=== PATIENT | female | born 1975 | race Caucasian/White ===

== ENCOUNTER → 2023-03-30 10:23 | Emergency (ER) | payer MEDICAID ==
[~2023-03-30] VITALS: Ht 170.2 cm; Wt 91.0 kg
[~2023-03-30 10:23] MED LIST: ALPR1TAB7; ARIP1TAB5 PO; CLIN300C8 PO; HYDR-2598; LORA-483 PO; LORazepam 0.5 MG TAB PO ONE; SERT50TA19 PO
[2023-03-30 10:57] LABS: Basophils # (auto) 0.1 10 ^3/uL (0-0.2); Basophils % (auto) 0.8 % (0.0-2.0); Eosinophils # (auto) 0 10 ^3/uL (0-0.8); Eosinophils % (auto) 0.1 % (0.0-7.0); Hematocrit 40.3 % (36.0-46.0); Hemoglobin 13.7 g/dL (12.2-16.2); Lymphocytes # (auto) 1.5 10 ^3/uL (0.4-5.4); Lymphocytes % (auto) 21.2 % (10.0-50.0); Mean Corpuscular Hemoglobin 29.7 pg (28.0-32.0); Mean Corpuscular Hgb Conc. 33.9 g/dL (32.0-36.0); Mean Corpuscular Volume 87.6 fL (80.0-100.0); Monocytes # (auto) 0.3 10 ^3/uL (0-1.3); Monocytes % (auto) 4.2 % (0.0-12.0); Neutrophils # (auto) 5.2 10 ^3/uL (1.6-8.6); Neutrophils % (auto) 73.7 % (37.0-80.0); Nucleated Red Blood Cells % 0.1 %; Red Blood Cells 4.61 10^6/uL (4.0-5.20); Red Cell Distribution Width 13.5 % (11.8-14.3)
[2023-03-30 11:20] LABS: Albumin 4.1 g/dL (3.4-5.0); Calcium 8.9 mg/dL (8.5-10.1); Potassium 3.6 mmol/L (3.5-5.1)
[2023-03-30 11:24] LABS: BUN/Creatinine Ratio 17.4 (10.0-20.0); Bilirubin, Total 0.6 mg/dL (0.2-1.0); Total Protein 7.5 g/dL (6.4-8.2)
[2023-03-30 13:13] VITALS: BP 112/64
== END | disposition home or self-care (01) ==
LOC: EDUNIT# 10:17 → ER 10:23 → EDBD 10:23 → ER 13:51
DX: I10 Essential (primary) hypertension (principal); R07.89 Other chest pain; E05.90 Thyrotoxicosis, unspecified without thyrotoxic crisis or storm; Z88.5 Allergy status to narcotic agent
CPT/HCPCS: 36415; 71045; 80053; 84484; 85025; 93005

== ENCOUNTER 2023-07-20 06:33 | Emergency (ER) | payer MEDICAID ==
[~2023-07-20] VITALS: Ht 167.6 cm; Wt 90.1 kg
[~2023-07-20 06:33] MED LIST changes: +CLIN300C70 PO; -CLIN300C8 PO; -LORazepam 0.5 MG TAB PO ONE; +SERT-206 PO; -SERT50TA19 PO
[2023-07-20 07:27] LABS: Basophils # (auto) 0.1 10 ^3/uL (0-0.2); Basophils % (auto) 2.3 % (0.0-2.0); Eosinophils # (auto) 0.1 10 ^3/uL (0-0.8); Eosinophils % (auto) 2.4 % (0.0-7.0); Hematocrit 40.9 % (36.0-46.0); Lymphocytes # (auto) 1.7 10 ^3/uL (0.4-5.4); Lymphocytes % (auto) 31.7 % (10.0-50.0); Mean Corpuscular Hgb Conc. 34.1 g/dL (32.0-36.0); Mean Corpuscular Volume 88.1 fL (80.0-100.0); Monocytes # (auto) 0.4 10 ^3/uL (0-1.3); Monocytes % (auto) 7.5 % (0.0-12.0); Neutrophils % (auto) 56.1 % (37.0-80.0); Nucleated Red Blood Cells % 0.1 %; Red Blood Cells 4.65 10^6/uL (4.0-5.20); Red Cell Distribution Width 13.3 % (11.8-14.3); White Blood Cell 5.3 10^3/uL (4.4-10.8)
[2023-07-20 07:39] LABS: INR 0.96 (0.9-1.15); Partial Thromboplastin Time 28.7 SEC (24.5-34.5); Prothrombin Time 10.1 sec (9.3-11.8)
[2023-07-20 07:50] LABS: Alanine Aminotransferase 31 U/L (7-40); Albumin 4.5 g/dL (3.2-4.8); Alkaline Phosphatase 134 U/L (46-116); Anion Gap 2.9 (5-15); Aspartate Aminotransferase 31 U/L (13-40); BUN/Creatinine Ratio 16.1 (10.0-20.0); Bilirubin, Total 0.7 mg/dL (0.2-1.0); Blood Urea Nitrogen 14 mg/dL (9-23); Calcium 9.4 mg/dL (8.5-10.1); Carbon Dioxide 29.1 mmol/L (20-30); Chloride 104 mmol/L (98-107); Glucose 98 mg/dL (74-106); Magnesium 2.1 mg/dL (1.6-2.6); Potassium 4.3 mmol/L (3.5-5.1); Sodium 136 mmol/L (136-145); Total Protein 7.4 g/dL (5.7-8.2)
[2023-07-20] MEDS ORDERED: IOHEXOL 350 MG/ML 100ML IJ ONE (10:35)
[2023-07-20] MEDS ORDERED: NAPR-1334 PO (13:42)
[2023-07-20 13:46] VITALS: BP 130/96; PULSE 72; RESP 18; TEMP 98.1; O2SAT 97
== END 2023-07-20 13:48 | disposition home or self-care (01) ==
LOC: ER 06:33
DX: R07.89 Other chest pain (principal); I10 Essential (primary) hypertension; F17.210 Nicotine dependence, cigarettes, uncomplicated; Z88.0 Allergy status to penicillin; Z88.5 Allergy status to narcotic agent; Z79.1 Long term (current) use of non-steroidal anti-inflammatories (NSAID); Z79.899 Other long term (current) drug therapy
CPT/HCPCS: 36415; 71045; 71275; 80053; 83735; 83880; 84484; 85025; 85610; 85730; 93005; 99285; Q9967

== ENCOUNTER 2024-03-02 06:17 | Emergency (ER) | payer MEDICAID ==
[~2024-03-02] VITALS: Ht 167.6 cm; Wt 90.9 kg
[~2024-03-02 06:17] MED LIST changes: +ARIP10TA8 PO; -ARIP1TAB5 PO; +CLIN1CAP70 PO; -CLIN300C70 PO; +NAPR-1335 PO
[2024-03-02 06:22] VITALS: BP 143/85; PULSE 56; RESP 16; TEMP 98.6
[2024-03-02 07:12] VITALS: O2SAT 99
[2024-03-02] MEDS ORDERED: LORA-1121 PO (07:33)
[2024-03-02] MEDS ORDERED: LEVO25TA6 PO (07:33)
[2024-03-02] MEDS ORDERED: HYDR50TA47 PO (07:33)
[2024-03-02] MEDS ORDERED: LISI40TA16 PO (07:33)
== END 2024-03-02 07:41 | disposition home or self-care (01) ==
LOC: ER 06:17
DX: I10 Essential (primary) hypertension (principal); F41.9 Anxiety disorder, unspecified; F17.210 Nicotine dependence, cigarettes, uncomplicated; Z76.0 Encounter for issue of repeat prescription; Z88.0 Allergy status to penicillin; Z88.6 Allergy status to analgesic agent

== ENCOUNTER 2024-04-05 06:37 | Emergency (ER) | payer MEDICAID ==
[~2024-04-05] VITALS: Ht 167.6 cm; Wt 92.5 kg
[~2024-04-05 06:37] MED LIST changes: +HYDR50TA47 PO; +LEVO25TA6 PO; +LISI40TA16 PO; +LORA-1121 PO
[2024-04-05 07:31] VITALS: BP 164/97; PULSE 64; RESP 16; TEMP 98.4; O2SAT 97
[2024-04-05] MEDS ORDERED: ESCI10TA PO (07:39)
== END 2024-04-05 08:01 | disposition home or self-care (01) ==
LOC: ER 06:37
DX: I10 Essential (primary) hypertension (principal); F17.210 Nicotine dependence, cigarettes, uncomplicated; E03.9 Hypothyroidism, unspecified; Z76.0 Encounter for issue of repeat prescription; Z88.6 Allergy status to analgesic agent; Z88.0 Allergy status to penicillin

== ENCOUNTER 2024-05-08 06:21 | Emergency (ER) | payer MEDICAID ==
[~2024-05-08] VITALS: Ht 167.6 cm; Wt 93.0 kg
[~2024-05-08 06:21] MED LIST changes: +ESCI10TA PO
[2024-05-08 08:16] VITALS: BP 129/75; PULSE 66; RESP 14; TEMP 98.2; O2SAT 98
[2024-05-08] MEDS ORDERED: HYDR-3682 PO (09:08)
[2024-05-08] MEDS ORDERED: LEVO25TA6 PO (09:08)
[2024-05-08] MEDS ORDERED: ESCI10TA PO (09:08)
[2024-05-08] MEDS ORDERED: LISI40TA16 PO (09:08)
[2024-05-08] MEDS ORDERED: HYDR25TA87 PO (09:08)
== END 2024-05-08 09:08 | disposition home or self-care (01) ==
LOC: ER 06:21
DX: I10 Essential (primary) hypertension (principal); F41.9 Anxiety disorder, unspecified; F32.9 Major depressive disorder, single episode, unspecified; F17.210 Nicotine dependence, cigarettes, uncomplicated; Z76.0 Encounter for issue of repeat prescription; Z88.5 Allergy status to narcotic agent; Z88.0 Allergy status to penicillin; Z79.899 Other long term (current) drug therapy

== ENCOUNTER 2024-06-07 13:24 | Emergency (ER) | payer MEDICAID ==
[~2024-06-07] VITALS: Ht 167.6 cm; Wt 88.2 kg
[~2024-06-07 13:24] MED LIST changes: +HYDR-3682 PO; +HYDR25TA87 PO
[2024-06-07 14:59] VITALS: BP 133/87; PULSE 71; RESP 16; TEMP 97.8; O2SAT 98
[2024-06-07] MEDS ORDERED: LISI40TA16 PO (15:07)
[2024-06-07] MEDS ORDERED: HYDR50TA47 PO (15:07)
[2024-06-07] MEDS ORDERED: LEVO25TA6 PO (15:07)
[2024-06-07] MEDS ORDERED: ESCI10TA PO (15:07)
== END 2024-06-07 15:15 | disposition home or self-care (01) ==
LOC: ER 13:24
DX: I10 Essential (primary) hypertension (principal); F41.9 Anxiety disorder, unspecified; F32.9 Major depressive disorder, single episode, unspecified; F17.210 Nicotine dependence, cigarettes, uncomplicated; Z76.0 Encounter for issue of repeat prescription; Z88.0 Allergy status to penicillin; Z88.5 Allergy status to narcotic agent; Z79.899 Other long term (current) drug therapy

== ENCOUNTER 2024-07-12 12:50 | Emergency (ER) | payer MEDICAID ==
[~2024-07-12] VITALS: Ht 167.6 cm; Wt 86.2 kg
[2024-07-12 13:31] VITALS: BP 128/72; PULSE 79; RESP 16; TEMP 97.9; O2SAT 98
[2024-07-12] MEDS ORDERED: HYDR25TA87 PO (13:41)
== END 2024-07-12 14:03 | disposition home or self-care (01) ==
LOC: ER 12:50
DX: I10 Essential (primary) hypertension (principal); E03.9 Hypothyroidism, unspecified; F17.210 Nicotine dependence, cigarettes, uncomplicated; Z76.0 Encounter for issue of repeat prescription; Z88.0 Allergy status to penicillin; Z88.6 Allergy status to analgesic agent

== ENCOUNTER 2024-08-14 05:04 | Emergency (ER) | payer MEDICAID ==
[~2024-08-14] VITALS: Ht 167.6 cm; Wt 85.7 kg
[~2024-08-14 05:04] MED LIST changes: -HYDR50TA47 PO
[2024-08-14 06:40] VITALS: BP 130/90; PULSE 68; RESP 18; TEMP 97.9; O2SAT 97
[2024-08-14] MEDS ORDERED: LISI40TA16 PO (06:54)
[2024-08-14] MEDS ORDERED: LEVO25TA6 PO (06:54)
[2024-08-14] MEDS ORDERED: HYDR-3682 PO (06:54)
[2024-08-14] MEDS ORDERED: ESCI10TA PO (06:54)
[2024-08-14] MEDS ORDERED: HYDR25TA87 PO (10:45)
== END 2024-08-14 07:05 | disposition home or self-care (01) ==
LOC: ER 05:04
DX: Z76.0 Encounter for issue of repeat prescription (principal); I10 Essential (primary) hypertension; F32.A Depression, unspecified; F41.9 Anxiety disorder, unspecified; F17.210 Nicotine dependence, cigarettes, uncomplicated; Z79.899 Other long term (current) drug therapy; Z98.890 Other specified postprocedural states; Z88.0 Allergy status to penicillin; Z88.5 Allergy status to narcotic agent; Z88.8 Allergy status to other drugs, medicaments and biological substances

== ENCOUNTER 2025-07-14 18:21 | Emergency (ER) | payer MEDICAID ==
[~2025-07-14] VITALS: Ht 167.6 cm; Wt 86.1 kg
[2025-07-14 18:23] VITALS: BP 191/103; RESP 16; TEMP 98.2; O2SAT 98
[2025-07-14 19:04] VITALS: PULSE 64
--- NOTE | 2025-07-14 19:04 | ED.PDOC ---
HPI Comments 50 y/o F presents with c/c hypertension. Patient endorses on her blood pressure being elevated, yesterday and today, amidst compliancy with her blood pressure medications (Hydralazine and Lisinopril). She reports an isolated episode of chest pain and tingling sensation to her tongue prior to checking her blood pressure, yesterday. Denies any chest pain, today. Reports on being stressed, lately, at work and since the passing of her , recently. Denial of any further acute symptoms. Upon arrival to ED, patient had a blood pressure of 191/103. Chief Complaint: High Blood Pressure Time Seen by MD: 18:30 Primary Care Provider: NONE Reviewed Notes: Nurses Notes, Medications, Allergies Allergies: Coded Allergies: Codeine (Unverified Allergy, Severe, 01/19/15) Hydromorphone (Verified Allergy, Unknown, 07/12/24) Penicillins (Verified Allergy, Unknown, 07/20/23) Home Meds Active Scripts Hydralazine HCl (Hydralazine HCl) 25 Mg Tab, 25 MG PO BID for 30 Days, #60 TAB Prov:DELLA KAPLAN NUTRITION TECHNICIAN 08/14/24 Levothyroxine Sodium (Levothyroxine Sodium) 25 Mcg Tab, 1 TAB PO DAILY, #30 TAB Prov:DELLA KAPLAN NUTRITION TECHNICIAN 08/14/24 Escitalopram Oxalate (Lexapro) 10 Mg Tab, 1 TAB PO DAILY, #30 TAB Prov:DELLA KAPLAN NUTRITION TECHNICIAN 08/14/24 Hydroxyzine Hcl (Hydroxyzine Hcl) 25 Mg Tab, 1 TAB PO BIDPRN PRN for 30 Days, #60 TAB For anxiety Prov:DELLA KAPLAN NP 08/14/24 Lisinopril (Lisinopril) 40 Mg Tab, 1 TAB PO DAILY, #30 TAB Prov:DELLA KAPLAN NUTRITION TECHNICIAN 08/14/24 Lisinopril (Lisinopril) 40 Mg Tab, 1 TAB PO DAILY, #30 TAB Prov:EDIS ROLON 07/12/24 Escitalopram Oxalate (Lexapro) 10 Mg Tab, 1 TAB PO DAILY, #30 TAB Prov:EDIS ROLON 07/12/24 Levothyroxine Sodium (Levothyroxine Sodium) 25 Mcg Tab, 1 TAB PO DAILY, #30 TAB Prov:ROSA AVILA NP 05/08/24 Lorazepam (ATIVAN TABLET) 0.5 Mg Tb, 1 TAB PO BID, #14 TAB Prov:EDIS ROLON 03/02/24 Naproxen Sodium (Naproxen) 220 Mg Tab, 220 MG PO BID for 7 Days, #14 TAB Prov:CESARIO BILLINGSLEY MD 07/20/23 Reported Medications Hydrocodone-Acetaminophen (Hydrocodone/Acetaminophen) 1 Tab Tab, #16 01/20/15 Clindamycin Hcl (Clindamycin Hcl) 300 Mg Cap, 300 MG PO QID, #28 01/20/15 Aripiprazole (Abilify) 10 Mg Tab, 10 MG PO DAILY, #30 01/20/15 Sertraline Hcl (Sertraline Hcl) 50 Mg Tab, 50 MG PO DAILY, #30 01/20/15 Loratadine (CLARITIN TABLET) 10 Mg Tb, 10 MG PO DAILY, #30 01/20/15 Alprazolam (Alprazolam) 1 Mg Tab, #30 01/20/15 Information Source: Patient Mode of Arrival: Ambulatory Past Medical History PAST MEDICAL HISTORY: Anxiety, Depression, HTN, Thyroid Surgical History: Denies all surgeries 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 EXCEPTIONAL CHILDREN'S [employer]ER Hx Family History Family History: Reviewed,noncontributory to illness Social History Smoker: Cigarettes Alcohol: Denies ETOH Use Drugs: Denies Drug Use Lives In: Home All Other Systems: Reviewed and Negative (As per HPI) Physical Exam General Appearance: No Apparent Distress, Obese HEENT: Normal ENT Inspection, Pharynx Normal, TMs Normal Neck: Full Range of Motion, Non-Tender, Normal, Normal Inspection Respiratory: Chest Non-Tender, Lungs Clear, No Accessory Muscle Use, No Respiratory Distress, Normal Breath Sounds Cardiovascular: No Edema, No JVD, No Murmur, No Gallop, Normal Peripheral Pulses, Regular Rate/Rhythm Breast Exam: Deferred Gastrointestinal: No Organomegaly, Non Tender, No Pulsatile Mass, Normal Bowel Sounds, Soft Genitalia: Deferred Pelvic: Deferred Rectal: Deferred Extremities: No calf tenderness, Normal capillary refill, Normal inspection, Normal range of motion, Non-tender, No pedal edema Musculoskeletal : Apperance: Normal Neurologic: Alert, inspector watch train II-XII nml as Tested, No Motor Deficits, Normal Mood, No Sensory Deficits, Other (anxious affect ) Cerebellar Function: Normal Reflexes: Normal Skin: Dry, Normal Color, Warm Lymphatic: No Adenopathy EKG EKG : Pulse Rate (adult): 64 [place]: Normal Cardiac Rhythm: NSR Block: None Hypertrophy: LAE ST: Normal Was a procedure done? Was a procedure done?: No CP Differential Dx Differential Diagnosis: N/A Differential Diagnosis: HTN Essential, HTN Accelerated, Medical NonCompliance X-Ray, Labs, Meds, VS Vital Signs Date Time Temp Pulse Resp B/P (MAP) Pulse Ox O2 Delivery O2 Flow Rate FiO2 07/14/25 19:04 64 07/14/25 18:28 64 07/14/25 18:23 98.2 71 16 191/103 98 98.2 Lab Test 07/14/25 19:23 Range/Units White Blood Count 5.0 4.4-10.8 10^3/uL Red Blood Count 4.57 4.0-5.20 10^6/uL Hemoglobin 14.1 12.2-16.2 g/dL Hematocrit 40.3 36.0-46.0 % Mean Corpuscular Volume 88.2 80.0-100.0 fL Mean Corpuscular Hemoglobin 30.9 28.0-32.0 pg Mean Corpuscular Hemoglobin Concent 35.1 32.0-36.0 g/dL Red Cell Distribution Width 13.3 11.8-14.3 % Platelet Count 192 140-450 10^3/uL Mean Platelet Volume 8.2 6.9-10.8 fL Neutrophils (%) (Auto) 48.1 37.0-80.0 % Lymphocytes (%) (Auto) 40.6 10.0-50.0 % Monocytes (%) (Auto) 8.2 0.0-12.0 % Eosinophils (%) (Auto) 2.2 0.0-7.0 % Basophils (%) (Auto) 0.9 0.0-2.0 % Neutrophils # (Auto) 2.4 1.6-8.6 10 ^3/uL Lymphocytes # (Auto) 2.0 0.4-5.4 10 ^3/uL Monocytes # (Auto) 0.4 0-1.3 10 ^3/uL Eosinophils # (Auto) 0.1 0-0.8 10 ^3/uL Basophils # (Auto) 0 0-0.2 10 ^3/uL Nucleated Red Blood Cells 0.2 % Sodium Level 141 136-145 mmol/L Potassium Level 4.3 3.5-5.1 mmol/L Chloride Level 108 H 98-107 mmol/L Carbon Dioxide Level 29 20-31 mmol/L Anion Gap 4 L 5-15 Blood Urea Nitrogen 15 9-23 mg/dL Creatinine 0.72 0.550-1.02 mg/dL Glomerular Filtration Rate Calc 101 >90 mL/min BUN/Creatinine Ratio 20.8 H 10.0-20.0 Serum Glucose 72 L 74-106 mg/dL Calcium Level 9.4 8.7-10.4 mg/dL Total Bilirubin 0.6 0.2-1.0 mg/dL Aspartate Amino Transferase (AST) 38 13-40 U/L Alanine Aminotransferase (ALT) 33 7-40 U/L Alkaline Phosphatase 140 H 46-116 U/L Troponin I High Sensitivity < 3 L </=34 ng/L Total Protein 7.4 5.7-8.2 g/dL Albumin 4.5 3.2-4.8 g/dL [place] [id number] Ph: [phone] DIAGNOSTIC IMAGING Diagnostic Imaging Report : [id number] Signed PATIENT: DELMAR EASLEY ACCT: [id number] UNIT: [id number] : 1975 LOC: ER ROOM / BED: / AGE / SEX: 50 / F ADM STATUS: REG ER SERVICE 1846 ORDERING PHYSICIAN: BARTOLOME JOSE MD PROCEDURE(s): CXR1 - CHEST XRAY 1 VIEW REASON: chest pain ORDER NUMBER(s): [id number], ACCESSION NUMBER(s): [id number] CHEST RADIOGRAPH Indication: chest pain Technique: Single frontal view of the chest was obtained Comparison: XY CHEST PORTABLE on DOS: 07/20/23, XY CHEST PORTABLE on DOS: 03/30/23 FINDINGS: Lines and Tubes: None Lungs: No focal consolidation. Pleura: No effusion. No pneumothorax. Cardiomediastinal contours: Unremarkable Bones: No acute osseous abnormality. IMPRESSION: No acute cardiopulmonary disease. ATED BY: MILAGROS TURNER DO DICTATED DATE/TIME: 07/14/251947 SIGNED BY: MILAGROS TURNER DO SIGNED DATE/TIME: 07/14/251947 CC: Time of 1ST Reevaluation: 19:00 Reevaluation 1ST: Unchanged Patient Education/Counseling: Diagnosis, Treatment Family Education/Counseling: No Family Present SEPSIS Sepsis Screen Date sepsis recognized/suspect: Jul 14, 2025 Time Sepsis recognized/suspect: 1824 Recent Procedure: No On Antibiotic Therapy: No Respiratory Rate >20: No Heart Rate >90: No Temp<36 C (96.8 F) or >38.3 C: No SBP <90 or MAP <65 mmHG: No New Acute Mental Status Change: No Is the patient on CPAP, BIPAP,: No Physician Orders Chest Xray 1 View (07/14/25 18:46) Vital Signs Date Time Temp Pulse Resp B/P (MAP) Pulse Ox O2 Delivery O2 Flow Rate FiO2 07/14/25 19:04 64 07/14/25 18:28 64 07/14/25 18:23 98.2 71 16 191/103 98 98.2 Laboratory Tests Test 07/14/25 19:23 White Blood Count 5.0 10^3/uL (4.4-10.8) Departure 1 Departure Time of Disposition: 21:00 Impression: Primary Impression: Palpitations Additional Impression: HTN (hypertension) Disposition: 01 HOME / SELF CARE / HOMELESS Condition: Stable Discharged With: Self Critical Care Note Critical Care Time?: No Stability Stability form required: No Heart Score Heart Score: Heart Score Response (Comments) Value History Slightly Suspicious 0 EKG Normal 0 Age 45-64 1 Risk Factors 1 or 2 risk factors 1 Troponin Normal limit 0 Total 2 I personally scribed for BARTOLOME JOSE MD ([email or web address]) on 07/14/25 at 19:04. Electronically submitted by Edgardo Billingsley ([email or web address]). I personally scribed for BARTOLOME JOSE MD ([email or web address]) on 07/14/25 at 19:53. Electronically submitted by Edgardo Billingsley ([email or web address]). I personally scribed for BARTOLOME JOSE MD ([email or web address]) on 07/14/25 at 20:39. Electronically submitted by Edgardo Billingsley ([email or web address]). I personally scribed for BARTOLOME JOSE MD ([email or web address]) on 07/14/25 at 21:05. Electronically submitted by Edgardo Billingsley ([email or web address]). BARTOLOME JOSE MD Jul 14, 2025 19:04
--- NOTE | 2025-07-14 19:47 | ECG ---
[facility] Test Date: 2025-07-14 Test Time: 18:28:56 Pat Name: DELMAR EASLEY Department: ED Room: Gender: F [employer] Operator: joyce : 1975 Requested By: EMERGENCY EMERGENCY Order Number: [id number] Reading MD: Luke Glass Measurements Intervals [place] Rate: 64 P: 63 AL: 135 QRS: 56 QRSD: 87 T: 56 QT: 425 QTc: 439 Interpretive Statements Sinus rhythm Left atrial enlargement Electronically Signed On 07-15-2025 14:28:08 PDT by Luke Glass Please click the below link to view image of tracing.
[2025-07-14 19:48] LABS: Hematocrit 40.3 % (36.0-46.0); Hemoglobin 14.1 g/dL (12.2-16.2); Mean Corpuscular Hemoglobin 30.9 pg (28.0-32.0); Mean Corpuscular Volume 88.2 fL (80.0-100.0); Nucleated Red Blood Cells % 0.2 %
--- NOTE | 2025-07-14 19:50 | DVH ---
CHEST RADIOGRAPH Indication: chest pain Technique: Single frontal view of the chest was obtained Comparison: XY CHEST PORTABLE on DOS: 07/20/23, XY CHEST PORTABLE on DOS: 03/30/23 FINDINGS: Lines and Tubes: None Lungs: No focal consolidation. Pleura: No effusion. No pneumothorax. Cardiomediastinal contours: Unremarkable Bones: No acute osseous abnormality. IMPRESSION: No acute cardiopulmonary disease.
[2025-07-14 19:58] LABS: Alanine Aminotransferase 33 U/L (7-40); Albumin 4.5 g/dL (3.2-4.8); Anion Gap 4 (5-15); BUN/Creatinine Ratio 20.8 (10.0-20.0); Bilirubin, Total 0.6 mg/dL (0.2-1.0); Blood Urea Nitrogen 15 mg/dL (9-23); Calcium 9.4 mg/dL (8.7-10.4); Carbon Dioxide 29 mmol/L (20-31); Potassium 4.3 mmol/L (3.5-5.1); Sodium 141 mmol/L (136-145); Total Protein 7.4 g/dL (5.7-8.2)
[2025-07-14 20:01] LABS: Alkaline Phosphatase 140 U/L (46-116); Chloride 108 mmol/L (98-107); Glucose 72 mg/dL (74-106)
== END 2025-07-14 21:35 | disposition home or self-care (01) ==
LOC: ER 18:21
DX: R00.2 Palpitations (principal); I10 Essential (primary) hypertension; F17.210 Nicotine dependence, cigarettes, uncomplicated; F32.A Depression, unspecified; F41.9 Anxiety disorder, unspecified; Z79.899 Other long term (current) drug therapy; Z88.5 Allergy status to narcotic agent; Z88.0 Allergy status to penicillin
CPT/HCPCS: 36415; 71045; 80053; 84484; 85025; 93005